=== PATIENT | female | born 1960 | race American Indian/Alaskan Native ===

== ENCOUNTER 2016-10-22 16:52 | Emergency (ER) | payer OTHER ==
[2016-10-22] MEDS ORDERED: ZOFRAN ODT PO ONE (17:25)
[2016-10-22 18:41] LABS: Basophils % (Auto) 0.5 % (0.0-1.8); Eosinophils % (Auto) 0.6 % (0.0-4.3); Hematocrit 38.2 % (30.3-42.9); Hemoglobin 12.8 gm/dl (10.1-14.3); Mean Corpuscular HGB Conc 34 % (30-34); Mean Corpuscular Hemoglobin 30 pg (28-32); Mean Corpuscular Volume 90 fl (79-97); Platelet Count 216 K/mm3 (140-440); Red Blood Count 4.24 M/mm3 (3.65-5.03); Red Cell Distribution Width 13.5 % (13.2-15.2); White Blood Count 9.9 K/mm3 (4.5-11.0)
[2016-10-22 18:59] LABS: Anion Gap 18 mmol/L; BUN/Creatinine Ratio 13.75; Blood Urea Nitrogen 11 mg/dL (7-17); Calcium 9.3 mg/dL (8.4-10.2); Carbon Dioxide 28 mmol/L (22-30); Chloride 99.7 mmol/L (98-107); Glucose 133 mg/dL (65-100); Potassium 3.7 mmol/L (3.6-5.0); Sodium 142 mmol/L (137-145)
[2016-10-23 05:12] VITALS: BP 147/73
--- NOTE | 2016-10-23 05:18 | Emergency Department Report ---
HPI - General Chief Complaint: Nausea/Vomiting/Diarrhea Time Seen by Provider: 10/23/16 05:06 - HPI HPI: This is a 56-year-old Afro-T[place] female who presents to the emergency department from home with complaint of left arm pain, nausea and vomiting. Patient started having the arm pain on Monday, 4 days ago. When the pain continued and/or worsened on Monday, 2 days ago, the patient went to [facility] for further evaluation. She says that she had a workup there that included x-rays and labs and was discharged home with the diagnoses of arthritis. However the patient was given some Percocet at the ER and it did not do well with her and she had episodes of nausea and vomiting. Patient continued to have episodes of nausea and vomiting even after discharge. She was discharged home with naproxen and tramadol. The patient says that the naproxen seems to work well for her but when she took the tramadol she once again had some episodes of nausea and vomiting. She presents here today with concern for the nausea and vomiting. She denies any chest pain, shortness of breath, back pain, fever. She has a past medical history of non-insulin dependent diabetes and hypertension. She did not take her blood pressure medications yet today. She has a primary care doctor but has not seen them regarding her symptoms. ED Past Medical Hx - Past Medical History Previous Medical History?: Yes Hx Hypertension: Yes Hx Diabetes: Yes - Social History Smoking Status: Never Smoker Substance Use Type: None - Medications Home Medications: Home Medications Medication Instructions Recorded Confirmed Last Taken Type Lisinopril/Hydrochlorothiazide 1 tab PO QDAY 11/17/15 11/17/15 Unknown History [Zestoretic 20-25 mg] Metformin HCl [Glucophage Xr] 500 mg PO DAILY 11/17/15 11/17/15 Unknown History Ondansetron [Zofran Odt] 4 mg PO Q6H #7 tab.rapdis 11/17/15 Unknown Rx Verapamil ER [Calan Sr] 180 mg PO DAILY 11/17/15 11/17/15 Unknown History Ondansetron [Zofran Odt] 4 mg PO Q8H PRN #10 tab.rapdis 10/23/16 Unknown Rx ED Review of Systems ROS: Stated complaint: VOMITTING Other details as noted in HPI Comment: All other systems reviewed and negative Constitutional: denies: chills, fever Eyes: denies: eye pain, eye discharge, vision change ENT: denies: ear pain, throat pain Respiratory: denies: cough, shortness of breath, wheezing Cardiovascular: denies: chest pain, palpitations Gastrointestinal: nausea, vomiting Genitourinary: denies: urgency, dysuria, discharge Musculoskeletal: denies: back pain, joint swelling, arthralgia Skin: denies: rash, lesions Neurological: denies: headache, weakness, paresthesias Physical Exam - Physical Exam Vital Signs: Vital Signs 10/22/16 10/22/16 10/23/16 17:05 22:29 03:21 Temperature 98.2 F 98.8 F 98.5 F Pulse Rate 70 68 63 Respiratory 18 18 18 Rate Blood Pressure 152/80 183/98 Blood Pressure 193/82 [Right] O2 Sat by Pulse 97 98 97 Oximetry Physical Exam: GENERAL: The patient is well-developed well-nourished. HEENT: Normocephalic. Atraumatic. Extraocular motions are intact. Patient has moist mucous membranes. Pupils equal reactive to light bilaterally. NECK: Supple. Trachea is midline. CHEST/LUNGS: Clear to auscultation. There is no respiratory distress noted. HEART/CARDIOVASCULAR: Regular. There is no tachycardia. There is no gallop rub or murmur. ABDOMEN: Abdomen is soft, nontender. Patient has normal bowel sounds. There is no abdominal distention. SKIN: Skin is warm and dry. NEURO: The patient is awake, alert, and oriented. The patient is cooperative. The patient has no focal neurologic deficits. The patient has normal speech and gait. MUSCULOSKELETAL: She has some reproducible tenderness palpation to the left shoulder and bicep but no obvious deformity. Patient has some decreased arm extension and abduction secondary to pain. Radial pulses +2 over 4 bilaterally. There is no evidence of acute injury. ED Course Vital Signs 10/22/16 10/22/16 10/23/16 17:05 22:29 03:21 Temperature 98.2 F 98.8 F 98.5 F Pulse Rate 70 68 63 Respiratory 18 18 18 Rate Blood Pressure 152/80 183/98 Blood Pressure 193/82 [Right] O2 Sat by Pulse 97 98 97 Oximetry ED Medical Decision Making - Lab Data Result diagrams: 10/22/16 18:12 10/22/16 18:12 - EKG Data -: EKG Interpreted by Me EKG shows normal: sinus rhythm, axis, intervals, QRS complexes (LVH), ST-T waves Rate: normal - EKG Data When compared to previous EKG there are: previous EKG unavailable Interpretation: LVH - Radiology Data Radiology results: image reviewed interpreted by me: She has left shoulder does not show any fracture, dislocation or any acute process. - Medical Decision Making 48-year-old female presents with some left arm pain as well as some recent nausea and vomiting. The nausea and vomiting appears most consistent with taking any opiate medication as the patient does not appear to react well with those particular types medication. Patient has been in the emergency department for him was 12 hours and there is been no further vomiting. She was given a dose of Zofran earlier. Patient had x-rays at [facility] that were allegedly read as normal without any fracture or dislocation. X-ray was done here of left shoulder that also did not show any fracture, dislocation or any acute process. Patient's labs are unremarkable including negative troponins 3 but the patient also does not have any chest or back pain or any other signs of coronary artery disease. EKG does not show any signs of ST elevation [place], ischemia or dysrhythmia. The patient appears safe for discharge home. She'll be given a referral for orthopedist. She'll be given some Zofran for nausea and encouraged to stay away from the opiates. - Differential Diagnosis rotator cuff injury, osteoarthritis,, dislocation Critical Care Time: No Critical care attestation.: If time is entered above; I have spent that time in minutes in the direct care of this critically ill patient, excluding procedure time. ED Disposition Clinical Impression: Left shoulder pain Qualifiers: Chronicity: acute Qualified Code(s): M25.512 - Pain in left shoulder Nausea & vomiting Qualifiers: Vomiting type: unspecified Vomiting Intractability: non-intractable Qualified Code(s): R11.2 - Nausea with vomiting, unspecified Disposition: DISCHARGED TO HOME OR SELFCARE Is pt being admited?: No Condition: Stable Instructions: Arthralgia (ED), Acute Nausea and Vomiting (ED) Additional Instructions: Please follow-up with your primary care doctor the next few days. I'll getting a referral for a local orthopedist, Dr. Vargas, follow-up regarding her shoulder and arm pain. Return to the emergency department with any worsening of your symptoms or any acute distress. Prescriptions: Ondansetron [Zofran Odt] 4 mg PO Q8H PRN #10 tab.rapdis PRN Reason: Nausea Referrals: PRIMARY CARE, [Primary Care Provider] - 3-5 Days NEY VARGAS MD [Staff Physician] - 3-5 Days Time of Disposition: 05:58
--- NOTE | 2016-10-23 09:48 | XRay Report ---
Left shoulder 3 views: History: Shoulder pain. Findings: Suspicion of mild arthritic changes a.c. joint and inferior glenohumeral joint. The acromiohumeral space appears unremarkable. No soft tissue calcification. No abnormality of the greater and lesser tuberosity. Impression: Mild arthritic changes a.c. joint and inferior glenohumeral joint.
== END 2016-10-23 06:22 | disposition home or self-care (01) ==
LOC: ED 16:52
DX: M25.512 Pain in left shoulder (principal); R11.2 Nausea with vomiting, unspecified; I10 Essential (primary) hypertension; E11.9 Type 2 diabetes mellitus without complications
CPT/HCPCS: 36415; 80048; 82962; 84484; 85025; 93005; 93010; Q0162

== ENCOUNTER 2018-02-15 15:58 | Observation (INO) | payer OTHER ==
[2018-02-15 17:26] LABS: Basophils % (Auto) 0.4 % (0.0-1.8); Eosinophils % (Auto) 0.3 % (0.0-4.3); Hematocrit 39.8 % (30.3-42.9); Hemoglobin 13.3 gm/dl (10.1-14.3); Lymphocytes # (Auto) 1.9 K/mm3 (1.2-5.4); Lymphocytes % (Auto) 18.6 % (13.4-35.0); Mean Corpuscular HGB Conc 33 % (30-34); Mean Corpuscular Hemoglobin 31 pg (28-32); Mean Corpuscular Volume 93 fl (79-97); Monocytes # (Auto) 0.6 K/mm3 (0.0-0.8); Monocytes % (Auto) 5.7 % (0.0-7.3); Platelet Count 269 K/mm3 (140-440); Red Blood Count 4.29 M/mm3 (3.65-5.03); Red Cell Distribution Width 13.6 % (13.2-15.2)
[2018-02-15 17:32] LABS: Alanine Aminotransferase 22 units/L (7-56); BUN/Creatinine Ratio 17; Blood Urea Nitrogen 10 mg/dL (7-17); Calcium 9.5 mg/dL (8.4-10.2); Hemolysis Index 3
[2018-02-15 18:26] LABS: Bilirubin,Urine NEG (Negative); Blood,Urine NEG (Negative); Color,Urine Yellow (Yellow); Mucus,Urine FEW /HPF; Protein,Urine <15 mg/dL mg/dL (Negative); Urobilinogen,Urine < 2.0 mg/dL (<2.0)
[2018-02-15] MEDS ORDERED: ZOFRAN IV ONE (20:24)
[2018-02-15] MEDS ORDERED: NACL 0.9% 500 ML 500 ML IV ONE (20:24)
--- NOTE | 2018-02-15 20:25 | Emergency Department Report ---
ED Neuro Deficit HPI - General Chief Complaint: Nausea/Vomiting/Diarrhea Stated Complaint: NAUSEA Time Seen by Provider: 02/15/18 20:12 Source: patient, RN notes reviewed Mode of arrival: Ambulatory Limitations: No Limitations - History of Present Illness Initial Comments: This is a 57-year-old female who is unknown to this provider previously. Primary care Dr.: Dr. Lynch Past medical history: Hypertension, diabetes Patient presents to the ER with a complaint of nausea and feeling off balance. Her symptoms started at 12:30 PM this afternoon. Symptoms are constant, they do not have exacerbating or relieving factors. She admits to left-sided temporal headache and left-sided neck discomfort. The headache is not sudden or thunderclap in nature. No recent chiropractic manipulation, no recent motor vehicle accidents or fender elam's. Also admits nonspecific right-sided visual disturbance within the past month, reports that she saw an outpatient "eye doctor" and was informed that she had cataracts in the right eye. Denies chest pain, abdominal pain, shortness of breath, extremity weakness, numbness, urinary retention or incontinence. -: Sudden Location: ataxia Presenting Symptoms: Absent: Weak/Paralyzed One Side, Sudden, Severe Headache, Blurred/Loss of Vision, Facial Droop/Numbness, Unable to Speak Clearly, Altered Mental Status History of same: No Place: work Severity: moderate Improves With: none Worsens With: none On Anticoagulants: No Context: sudden onset Associated Symptoms: headaches, loss of appetite, malise, nausea/vomiting, weakness. denies: confusion, chest pain, cough, diaphoresis, fever/chills, vertigo, seizures, shortness of breath, syncope - Related Data Home Medications: Home Medications Medication Instructions Recorded Confirmed Last Taken Lisinopril/Hydrochlorothiazide 1 tab PO QDAY 11/17/15 11/17/15 Unknown [Zestoretic 20-25 mg] Metformin HCl [Glucophage Xr] 500 mg PO DAILY 11/17/15 11/17/15 Unknown Verapamil ER [Calan Sr] 180 mg PO DAILY 11/17/15 11/17/15 Unknown Previous Rx's Medication Instructions Recorded Last Taken Type Ondansetron [Zofran Odt] 4 mg PO Q6H #7 tab.rapdis 11/17/15 Unknown Rx Ondansetron [Zofran Odt] 4 mg PO Q8H PRN #10 tab.rapdis 10/23/16 Unknown Rx Allergies/Adverse Reactions: Allergies Allergy/AdvReac Type Severity Reaction Status Date / Time codeine Allergy Vomiting Verified 10/22/16 17:04 ED Review of Systems ROS: Stated complaint: NAUSEA Other details as noted in HPI Comment: All other systems reviewed and negative ED Past Medical Hx - Past Medical History Hx Hypertension: Yes Hx Diabetes: Yes - Social History Smoking Status: Never Smoker Substance Use Type: Alcohol - Medications Home Medications: Home Medications Medication Instructions Recorded Confirmed Last Taken Type Lisinopril/Hydrochlorothiazide 1 tab PO QDAY 11/17/15 11/17/15 Unknown History [Zestoretic 20-25 mg] Metformin HCl [Glucophage Xr] 500 mg PO DAILY 11/17/15 11/17/15 Unknown History Ondansetron [Zofran Odt] 4 mg PO Q6H #7 tab.rapdis 11/17/15 Unknown Rx Verapamil ER [Calan Sr] 180 mg PO DAILY 11/17/15 11/17/15 Unknown History Ondansetron [Zofran Odt] 4 mg PO Q8H PRN #10 tab.rapdis 10/23/16 Unknown Rx ED Neuro Physical Exam - General Limitations: No Limitations General appearance: alert, anxious Suspected Stroke: Yes - Head Head exam: Present: atraumatic, normocephalic - Eye Eye exam: Present: normal appearance, PERRL, EOMI, other (visual acuity intact to finger counting, color perception, reading at a close distance). Absent: nystagmus - ENT ENT exam: Present: normal exam, normal orophraynx, mucous membranes moist, normal external ear exam - Neck Neck exam: Present: normal inspection, full ROM. Absent: tenderness, meningismus - Respiratory Respiratory exam: Present: normal lung sounds bilaterally. Absent: respiratory distress - Cardiovascular Cardiovascular Exam: Present: regular rate, normal rhythm, normal heart sounds. Absent: bradycardia, tachycardia, irregular rhythm, systolic murmur, diastolic murmur, rubs, gallop - GI/Abdominal GI/Abdominal exam: Present: soft, normal bowel sounds. Absent: distended, tenderness, guarding, rebound, rigid, pulsatile mass - Extremities Exam Extremities exam: Present: normal inspection, full ROM, normal capillary refill , other (2+ pulses noted in the bilateral upper, lower extremities. Compartments soft. No long bony tenderness. The pelvis is stable.). Absent: pedal edema, joint swelling, calf tenderness - Back Exam Back exam: Present: normal inspection, full ROM. Absent: tenderness, CVA tenderness (R), paraspinal tenderness, vertebral tenderness - Neurological Exam Neurological exam: Present: alert (is no pass pointing. There is negative pronator drift. There is normal lden-jq-arpl.), oriented X3, CN II-XII intact, abnormal gait (patient walks with a normal gait. Cannot perform tandem gait. Has difficulty with Romberg examination), other (Extraocular movements intact. Tongue midline. No facial droop. Facial sensation intact to light touch in the V1, V2, V3 distribution bilaterally. 5 and 5 strength in 4 extremities.. Sensation is intact to light touch in 4 extremities.). Absent: motor sensory deficit - NIHSS Assessment Interval: Baseline 1a. Level of Consciousness: alert 1b. LOC Questions: answers correctly 1c. LOC Commands: performs tasks correctly 2. Best Gaze: normal 3. Visual: no visual loss 4. Facial Palsy: normal symmetrical movement 5b. Motor Arm Right: no drift 5a. Motor Arm Left: no drift 6a. Motor Leg Left: no drift 6b. Motor Leg Right: no drift 7. Limb Ataxia: absent 8. Sensory: normal 9. Best Language: no aphasia 10. Dysarthria: normal 11. Extinction/Inattention: no abnormality Total Score: 0 Stroke Severity: No Stroke Symptoms - Psychiatric Psychiatric exam: Present: anxious - Skin Skin exam: Present: warm, dry, intact, normal color. Absent: rash ED Course Vital Signs 02/15/18 02/15/18 16:43 20:38 Temperature 98.3 F 98.1 F Pulse Rate 69 68 Respiratory 17 18 Rate Blood Pressure 156/70 Blood Pressure 190/100 [Left] O2 Sat by Pulse 98 99 Oximetry - Reevaluation(s) Reevaluation #1: 02/15/18 21:14 Differential diagnosis, including but not limited to: Stroke, vertigo, arrhythmia, structural cardiac disease, electrolyte derangement, acute coronary syndrome Assessment and plan: 57-year-old female with a complaint of nausea and unsteady gait. She has mild headache and neck pain. She is afebrile with hypertension. Possible subacute stroke. Not a TPA candidate as her NIH score is 0, although she is unable to perform tandem gait. CT scan of the brain, CT angiogram of the head and neck pending to assess for potential endovascular lesion. Elevated blood pressure is appreciated, we will allow for permissive hypertension given current clinical picture. Reevaluation #2: 02/15/18 22:[address] scan of the brain is negative for acute disease. Reevaluation #3: 02/15/18 22:23 Angiogram of the head is negative. Hospital physician, Dr. Martinez accepts the patient to the medical service. Reevaluation #4: 02/15/18 22:32 CTA neck is negative for significant findings. - Lab Data Result diagrams: 02/15/18 16:55 02/15/18 16:55 Lab Results 02/15/18 02/15/18 02/15/18 Range/Units 16:55 16:55 17:02 WBC 9.9 (4.5-11.0) K/mm3 RBC 4.29 (3.65-5.03) M/mm3 Hgb 13.3 (10.1-14.3) gm/dl Hct 39.8 (30.3-42.9) % MCV 93 (79-97) fl MCH 31 (28-32) pg MCHC 33 (30-34) % RDW 13.6 (13.2-15.2) % Plt Count 269 (140-440) K/mm3 Lymph % (Auto) 18.6 (13.4-35.0) % Bent % (Auto) 5.7 (0.0-7.3) % Eos % (Auto) 0.3 (0.0-4.3) % Baso % (Auto) 0.4 (0.0-1.8) % Lymph # 1.9 (1.2-5.4) K/mm3 Bent # 0.6 (0.0-0.8) K/mm3 Eos # 0.0 (0.0-0.4) K/mm3 Baso # 0.0 (0.0-0.1) K/mm3 Seg Neutrophils % 75.0 H (40.0-70.0) % Seg Neutrophils # 7.5 (1.8-7.7) K/mm3 PT (12.2-14.9) Sec. INR (0.87-1.13) APTT (24.2-36.6) Sec. Sodium 140 (137-145) mmol/L Potassium 3.3 L (3.6-5.0) mmol/L Chloride 96.3 L (98-107) mmol/L Carbon Dioxide 30 (22-30) mmol/L Anion Gap 17 mmol/L BUN 10 (7-17) mg/dL Creatinine 0.6 L (0.7-1.2) mg/dL Estimated GFR > 60 ml/min BUN/Creatinine Ratio 17 % Glucose 144 H (65-100) mg/dL Calcium 9.5 (8.4-10.2) mg/dL Magnesium (1.7-2.3) mg/dL Total Bilirubin 0.30 (0.1-1.2) mg/dL AST 20 (5-40) units/L ALT 22 (7-56) units/L Alkaline Phosphatase 111 (35-129) units/L Total Creatine Kinase (30-135) units/L Troponin T (0.00-0.029) ng/mL Total Protein 8.2 (6.3-8.2) g/dL Albumin 4.0 (3.9-5) g/dL Albumin/Globulin Ratio 1.0 % HCG, Qual Negative (Negative) Urine Color (Yellow) Urine Turbidity (Clear) Urine pH (5.0-7.0) Ur Specific Hurst (1.003-1.030) Urine Protein (Negative) mg/dL Urine Glucose (UA) (Negative) mg/dL Urine Ketones (Negative) mg/dL Urine Blood (Negative) Urine Nitrite (Negative) Urine Bilirubin (Negative) Urine Urobilinogen (<2.0) mg/dL Ur Leukocyte Esterase (Negative) Urine WBC (Auto) (0.0-6.0) /HPF Urine RBC (Auto) (0.0-6.0) /HPF U Epithel Cells (Auto) (0-13.0) /HPF Urine Mucus /HPF 02/15/18 02/15/18 02/15/18 Range/Units 17:59 20:29 20:29 WBC (4.5-11.0) K/mm3 RBC (3.65-5.03) M/mm3 Hgb (10.1-14.3) gm/dl Hct (30.3-42.9) % MCV (79-97) fl MCH (28-32) pg MCHC (30-34) % RDW (13.2-15.2) % Plt Count (140-440) K/mm3 Lymph % (Auto) (13.4-35.0) % Bent % (Auto) (0.0-7.3) % Eos % (Auto) (0.0-4.3) % Baso % (Auto) (0.0-1.8) % Lymph # (1.2-5.4) K/mm3 Bent # (0.0-0.8) K/mm3 Eos # (0.0-0.4) K/mm3 Baso # (0.0-0.1) K/mm3 Seg Neutrophils % (40.0-70.0) % Seg Neutrophils # (1.8-7.7) K/mm3 PT 12.5 (12.2-14.9) Sec. INR 0.89 (0.87-1.13) APTT 21.4 L (24.2-36.6) Sec. Sodium (137-145) mmol/L Potassium (3.6-5.0) mmol/L Chloride (98-107) mmol/L Carbon Dioxide (22-30) mmol/L Anion Gap mmol/L BUN (7-17) mg/dL Creatinine (0.7-1.2) mg/dL Estimated GFR ml/min BUN/Creatinine Ratio % Glucose (65-100) mg/dL Calcium (8.4-10.2) mg/dL Magnesium 2.00 (1.7-2.3) mg/dL Total Bilirubin (0.1-1.2) mg/dL AST (5-40) units/L ALT (7-56) units/L Alkaline Phosphatase (35-129) units/L Total Creatine Kinase 99 (30-135) units/L Troponin T (0.00-0.029) ng/mL Total Protein (6.3-8.2) g/dL Albumin (3.9-5) g/dL Albumin/Globulin Ratio % HCG, Qual (Negative) Urine Color Yellow (Yellow) Urine Turbidity Clear (Clear) Urine pH 7.0 (5.0-7.0) Ur Specific Hurst 1.015 (1.003-1.030) Urine Protein <15 mg/dl (Negative) mg/dL Urine Glucose (UA) 50 (Negative) mg/dL Urine Ketones Neg (Negative) mg/dL Urine Blood Neg (Negative) Urine Nitrite Neg (Negative) Urine Bilirubin Neg (Negative) Urine Urobilinogen < 2.0 (<2.0) mg/dL Ur Leukocyte Esterase Sm (Negative) Urine WBC (Auto) 5.0 (0.0-6.0) /HPF Urine RBC (Auto) 2.0 (0.0-6.0) /HPF U Epithel Cells (Auto) 2.0 (0-13.0) /HPF Urine Mucus Few /HPF 02/15/18 Range/Units 20:35 WBC (4.5-11.0) K/mm3 RBC (3.65-5.03) M/mm3 Hgb (10.1-14.3) gm/dl Hct (30.3-42.9) % MCV (79-97) fl MCH (28-32) pg MCHC (30-34) % RDW (13.2-15.2) % Plt Count (140-440) K/mm3 Lymph % (Auto) (13.4-35.0) % Bent % (Auto) (0.0-7.3) % Eos % (Auto) (0.0-4.3) % Baso % (Auto) (0.0-1.8) % Lymph # (1.2-5.4) K/mm3 Bent # (0.0-0.8) K/mm3 Eos # (0.0-0.4) K/mm3 Baso # (0.0-0.1) K/mm3 Seg Neutrophils % (40.0-70.0) % Seg Neutrophils # (1.8-7.7) K/mm3 PT (12.2-14.9) Sec. INR (0.87-1.13) APTT (24.2-36.6) Sec. Sodium (137-145) mmol/L Potassium (3.6-5.0) mmol/L Chloride (98-107) mmol/L Carbon Dioxide (22-30) mmol/L Anion Gap mmol/L BUN (7-17) mg/dL Creatinine (0.7-1.2) mg/dL Estimated GFR ml/min BUN/Creatinine Ratio % Glucose (65-100) mg/dL Calcium (8.4-10.2) mg/dL Magnesium (1.7-2.3) mg/dL Total Bilirubin (0.1-1.2) mg/dL AST (5-40) units/L ALT (7-56) units/L Alkaline Phosphatase (35-129) units/L Total Creatine Kinase (30-135) units/L Troponin T < 0.010 (0.00-0.029) ng/mL Total Protein (6.3-8.2) g/dL Albumin (3.9-5) g/dL Albumin/Globulin Ratio % HCG, Qual (Negative) Urine Color (Yellow) Urine Turbidity (Clear) Urine pH (5.0-7.0) Ur Specific Hurst (1.003-1.030) Urine Protein (Negative) mg/dL Urine Glucose (UA) (Negative) mg/dL Urine Ketones (Negative) mg/dL Urine Blood (Negative) Urine Nitrite (Negative) Urine Bilirubin (Negative) Urine Urobilinogen (<2.0) mg/dL Ur Leukocyte Esterase (Negative) Urine WBC (Auto) (0.0-6.0) /HPF Urine RBC (Auto) (0.0-6.0) /HPF U Epithel Cells (Auto) (0-13.0) /HPF Urine Mucus /HPF - EKG Data EKG shows normal: sinus rhythm When compared to previous EKG there are: previous EKG unavailable 02/15/18 21:15 Sinus bradycardia, 58 bpm, normal axis, high left ventricular voltage, QTC prolonged, abnormal EKG, not a STEMI - Radiology Data Radiology results: report reviewed - Core Measures Measure Exclusions: not indicated - Thrombolytic Inclusion/Exclusion Thrombolytic Exclusion Criteria: Symptom Onset > 3 Hours Critical care attestation.: If time is entered above; I have spent that time in minutes in the direct care of this critically ill patient, excluding procedure time. ED Disposition Clinical Impression: Unsteady gait Disposition: OP ADMIT IP TO THIS HOSP Is pt being admited?: Yes Does the pt Need Aspirin: Yes Condition: Good Referrals: PRIMARY CARE, [Primary Care Provider] - 3-5 Days
[2018-02-15 20:54] LABS: INR 0.89 (0.87-1.13)
[2018-02-15 20:55] LABS: Partial Thromboplastin Time 21.4 Sec. (24.2-36.6)
--- NOTE | 2018-02-15 21:53 | Cat Scan Report ---
FINAL REPORT PROCEDURE: CT HEAD/BRAIN WO CON TECHNIQUE: Computerized tomography of the head was performed without contrast material. HISTORY: Stroke symptoms COMPARISON: No prior studies are available for comparison. FINDINGS: Brain: There is no evidence of intracranial hemorrhage. No parenchymal hemorrhage is seen. No mass lesions or mass effect is identified. No abnormal extra-axial fluid collections or masses are seen. Nonspecific mineralization the basal ganglia are visualized. There is minimal decreased density seen in the periventricular white matter without mass effect. This is fairly symmetric and does not exhibit any mass effect consistent with gliosis probably on the basis of microvascular disease or white matter changes of aging. Ventricles: Ventricles are normal size and are midline. Bones: No evidence of acute fracture. Paranasal sinuses: Visualized portions appear clear. Mastoid air cells: Visualized portions appear clear. IMPRESSION: Minimal gliosis suspected. No other abnormalities are seen. If symptoms persist or worsen consider follow-up CT scan or MRI of the brain for further evaluation
--- NOTE | 2018-02-15 22:16 | Cat Scan Report ---
FINAL REPORT PROCEDURE: CT ANGIO HEAD TECHNIQUE: Computerized tomographic angiography of the head was performed during the IV injection of iodinated nonionic contrast including image processing. The image data was postprocessed using 2-dimensional multiplanar reformatted (MPR) and 3-dimensional (MIP and/or volume rendered) techniques. HISTORY: stroke sx COMPARISON: No prior studies are available for comparison. FINDINGS: The visualized portions of the internal carotid arteries appear widely patent. Carotid siphons, the A1 segments and anterior cerebral arteries as well as the middle cerebral arteries also appear widely patent. The vertebral arteries and basilar artery are widely patent. Right and left posterior cerebral arteries are widely patent. There is persistent circulation of the right posterior cerebral artery, normal variant. There is no vascular occlusion, significant stenosis, aneurysm or vascular malformation identified. IMPRESSION: The anterior posterior circulation are intact. No focal stenosis or occlusion identified.
[2018-02-15] MEDS ORDERED: BABY ASPIRIN PO ONE (22:27)
--- NOTE | 2018-02-15 22:27 | Cat Scan Report ---
FINAL REPORT PROCEDURE: CT ANGIO NECK TECHNIQUE: Computerized tomographic angiography of the neck was performed after the IV injection of iodinated nonionic contrast including image processing. The image data was postprocessed using 2-dimensional multiplanar reformatted (MPR) and 3-dimensional (MIP and/or volume rendered) techniques. HISTORY: stroke symptoms COMPARISON: No prior studies are available for comparison. Note: Assessment of carotid artery stenosis is based on measurement of the distal internal carotid artery diameter as the denominator for stenosis calculations and the [place] Symptomatic Carotid Endarterectomy Trial (NASCET) stenosis criteria . CPT 3100F FINDINGS: Visualized portions of the aortic arch is unremarkable. Vertebral arteries are widely patent. Common carotid arteries bilaterally are widely patent. The carotid bulbs are also widely patent. There is tortuosity of the right and left internal carotid arteries without stenosis or occlusion. IMPRESSION: Negative exam. Vertebral arteries and carotid arteries are widely patent.
[2018-02-15] MEDS ORDERED: NACL 0.9% 1000 ML 1,000 ML IV SCH (23:45)
--- NOTE | 2018-02-15 23:47 | History and Physical Report ---
History of Present Illness Date of examination: 02/15/18 Date of admission: 02/15/2018 Chief complaint: Chief complaint: Nausea and unsteady gait since 12:30 PM History of present illness: History of Present Illness: 57-year-old female with history of hypertension and type 2 diabetes comes in for nausea and feeling unsteady since 12:30 this afternoon. Symptoms are constant. Patient also admits to left-sided headache and left-sided neck discomfort. No recent motor vehicle accidents. Patient feels unsteady while walking. No nasal regurgitation of fluids. No diplopia. No exacerbating or relieving factors. Past Medical History Hx Hypertension: Yes Hx Diabetes: Yes Social History Smoking Status: Never Smoker Substance Use Type: Alcohol Family history Htn Surgery history - Medications Home Medications: Home Medications Medication Instructions Recorded Confirmed Last Taken Type Lisinopril/Hydrochlorothiazide 1 tab PO QDAY 11/17/15 11/17/15 Unknown History [Zestoretic 20-25 mg] Metformin HCl [Glucophage Xr] 500 mg PO DAILY 11/17/15 11/17/15 Unknown History Ondansetron [Zofran Odt] 4 mg PO Q6H #7 tab.rapdis 11/17/15 Unknown Rx Verapamil ER [Calan Sr] 180 mg PO DAILY 11/17/15 11/17/15 Unknown History Ondansetron [Zofran Odt] 4 mg PO Q8H PRN #10 tab.rapdis 10/23/16 Unknown Rx Review of systems ROS: Stated complaint: NAUSEA Other details as noted in HPI Comment: All other systems reviewed and negative Medications and Allergies Allergies Allergy/AdvReac Type Severity Reaction Status Date / Time codeine Allergy Vomiting Verified 10/22/16 17:04 Home Medications Medication Instructions Recorded Confirmed Last Taken Type Verapamil ER [Calan Sr] 180 mg PO DAILY 11/17/15 02/15/18 Unknown History Losartan/Hydrochlorothiazide 1 each PO DAILY 02/15/18 02/15/18 Unknown History [Losartan-Hctz 100-25 mg Tab] Exam - Physical Exam Narrative exam: Lying in bed in mild distress secondary to headache and nausea - Constitutional Vitals: Temp Pulse Resp BP Pulse Ox 98.1 F 54 L 13 149/81 100 02/15/18 20:38 02/15/18 22:46 02/15/18 22:46 02/15/18 22:46 02/15/18 22:46 General appearance: Present: mild distress, well-nourished - EENT Eyes: Present: PERRL ENT: hearing intact, clear oral mucosa - Neck Neck: Present: supple, normal ROM - Respiratory Respiratory effort: normal Respiratory: bilateral: CTA - Cardiovascular Heart Sounds: Present: S1 & S2. Absent: rub, click - Extremities Extremities: no ischemia, pulses intact, pulses symmetrical, No edema Peripheral Pulses: within normal limits - Abdominal General gastrointestinal: Present: soft, non-tender, non-distended, normal bowel sounds Female genitourinary: Present: normal - Rectal Rectal Exam: deferred - Integumentary Integumentary: Present: clear, warm, dry - Musculoskeletal Musculoskeletal: gait normal, strength equal bilaterally - Psychiatric Psychiatric: appropriate mood/affect, intact judgment & insight - Neurologic Neurologic: CNII-XII intact, moves all extremities (power is 5/5 all 4 extremities), other (unsteady gait) - Allied Health Allied health notes reviewed: nursing, case management Results - Labs CBC & Chem 7: 02/15/18 16:55 02/15/18 16:55 Labs: Laboratory Last Values WBC 9.9 K/mm3 (4.5-11.0) 02/15/18 16:55 RBC 4.29 M/mm3 (3.65-5.03) 02/15/18 16:55 Hgb 13.3 gm/dl (10.1-14.3) 02/15/18 16:55 Hct 39.8 % (30.3-42.9) 02/15/18 16:55 MCV 93 fl (79-97) 02/15/18 16:55 MCH 31 pg (28-32) 02/15/18 16:55 MCHC 33 % (30-34) 02/15/18 16:55 RDW 13.6 % (13.2-15.2) 02/15/18 16:55 Plt Count 269 K/mm3 (140-440) 02/15/18 16:55 Lymph % (Auto) 18.6 % (13.4-35.0) 02/15/18 16:55 [place] % (Auto) 5.7 % (0.0-7.3) 02/15/18 16:55 Eos % (Auto) 0.3 % (0.0-4.3) 02/15/18 16:55 Baso % (Auto) 0.4 % (0.0-1.8) 02/15/18 16:55 Lymph # 1.9 K/mm3 (1.2-5.4) 02/15/18 16:55 [place] # 0.6 K/mm3 (0.0-0.8) 02/15/18 16:55 Eos # 0.0 K/mm3 (0.0-0.4) 02/15/18 16:55 Baso # 0.0 K/mm3 (0.0-0.1) 02/15/18 16:55 Seg Neutrophils % 75.0 % (40.0-70.0) H 02/15/18 16:55 Seg Neutrophils # 7.5 K/mm3 (1.8-7.7) 02/15/18 16:55 PT 12.5 Sec. (12.2-14.9) 02/15/18 20:29 INR 0.89 (0.87-1.13) 02/15/18 20:29 APTT 21.4 Sec. (24.2-36.6) L 02/15/18 20:29 Sodium 140 mmol/L (137-145) 02/15/18 16:55 Potassium 3.3 mmol/L (3.6-5.0) L 02/15/18 16:55 Chloride 96.3 mmol/L (98-107) L 02/15/18 16:55 Carbon Dioxide 30 mmol/L (22-30) 02/15/18 16:55 Anion Gap 17 mmol/L 02/15/18 16:55 BUN 10 mg/dL (7-17) 02/15/18 16:55 Creatinine 0.6 mg/dL (0.7-1.2) L 02/15/18 16:55 Estimated GFR > 60 ml/min 02/15/18 16:55 BUN/Creatinine Ratio 17 % 02/15/18 16:55 Glucose 144 mg/dL (65-100) H 02/15/18 16:55 Calcium 9.5 mg/dL (8.4-10.2) 02/15/18 16:55 Magnesium 2.00 mg/dL (1.7-2.3) 02/15/18 20:29 Total Bilirubin 0.30 mg/dL (0.1-1.2) 02/15/18 16:55 AST 20 units/L (5-40) 02/15/18 16:55 ALT 22 units/L (7-56) 02/15/18 16:55 Alkaline Phosphatase 111 units/L (35-129) 02/15/18 16:55 Total Creatine Kinase 99 units/L (30-135) 02/15/18 20:29 Troponin T < 0.010 ng/mL (0.00-0.029) 02/15/18 20:35 Total Protein 8.2 g/dL (6.3-8.2) 02/15/18 16:55 Albumin 4.0 g/dL (3.9-5) 02/15/18 16:55 Albumin/Globulin Ratio 1.0 % 02/15/18 16:55 HCG, Qual Negative (Negative) 02/15/18 17:02 Urine Color Yellow (Yellow) 02/15/18 17:59 Urine Turbidity Clear (Clear) 02/15/18 17:59 Urine pH 7.0 (5.0-7.0) 02/15/18 17:59 Ur Specific [place] 1.015 (1.003-1.030) 02/15/18 17:59 Urine Protein <15 mg/dl mg/dL (Negative) 02/15/18 17:59 Urine Glucose (UA) 50 mg/dL (Negative) 02/15/18 17:59 Urine Ketones Neg mg/dL (Negative) 02/15/18 17:59 Urine Blood Neg (Negative) 02/15/18 17:59 Urine Nitrite Neg (Negative) 02/15/18 17:59 Urine Bilirubin Neg (Negative) 02/15/18 17:59 Urine Urobilinogen < 2.0 mg/dL (<2.0) 02/15/18 17:59 Ur Leukocyte Esterase Sm (Negative) 02/15/18 17:59 Urine WBC (Auto) 5.0 /HPF (0.0-6.0) 02/15/18 17:59 Urine RBC (Auto) 2.0 /HPF (0.0-6.0) 02/15/18 17:59 U Epithel Cells (Auto) 2.0 /HPF (0-13.0) 02/15/18 17:59 Urine Mucus Few /HPF 02/15/18 17:59 - Imaging and Cardiology EKG: report reviewed (heart rate of 58/m LVH by voltage criteria) Imaging and Cardiology: Neck CTA FINDINGS: Visualized portions of the aortic arch is unremarkable. Vertebral arteries are widely patent. Common carotid arteries bilaterally are widely patent. The carotid bulbs are also widely patent. There is tortuosity of the right and left internal carotid arteries without stenosis or occlusion. IMPRESSION: Negative exam. Vertebral arteries and carotid arteries are widely patent. Head CTA FINDINGS: The visualized portions of the internal carotid arteries appear widely patent. Carotid siphons, the A1 segments and anterior cerebral arteries as well as the middle cerebral arteries also appear widely patent. The vertebral arteries and basilar artery are widely patent. Right and left posterior cerebral arteries are widely patent. There is persistent circulation of the right posterior cerebral artery, normal variant. There is no vascular occlusion, significant stenosis, aneurysm or vascular malformation identified. IMPRESSION: The anterior posterior circulation are intact. No focal stenosis or occlusion identified. Head CT IMPRESSION: Minimal gliosis suspected. No other abnormalities are seen. If symptoms persist or worsen consider follow-up CT scan or MRI of the brain for further evaluation Assessment and Plan Advance Directives: Yes (full code) VTE prophylaxis?: Chemical Plan of care discussed with patient/family: Yes - Patient Problems (1) TIA (transient ischemic attack) Current Visit: Yes Status: Acute Plan to address problem: TIA versus acute CVA More in favor of TIA versus complex migraine MRI carotid duplex scan and echocardiogram ordered MRA did not ordered because her neck CTA and head CTA were negative (2) Hypertension Current Visit: Yes Status: Chronic Qualifiers: Hypertension type: essential hypertension Qualified Code(s): I10 - Essential (primary) hypertension Plan to address problem: Continue antihypertensive (3) T2DM (type 2 diabetes mellitus) Current Visit: Yes Status: Chronic Qualifiers: Diabetes mellitus terminal supervisor insulin use: without terminal supervisor use Plan to address problem: Continue metformin and coverage .Check hemoglobin A1c (4) Hypokalemia Current Visit: Yes Status: Acute Plan to address problem: Supplemented (5) DVT prophylaxis Current Visit: Yes Status: Acute Plan to address problem: Lovenox 40 mg subcutaneous daily
[2018-02-15] MEDS ORDERED: MORPHINE IV PRN (23:48)
[2018-02-15] MEDS ORDERED: ZOFRAN IV PRN (23:48)
[2018-02-15] MEDS ORDERED: SODIUM CHLORIDE FLUSH SYRINGE 10 ML IV PRN ×2 (23:48→23:52)
[2018-02-15] MEDS ORDERED: PERCOCET 5/325 PO PRN (23:48)
[2018-02-15] MEDS ORDERED: TYLENOL PO PRN (23:48)
[2018-02-16] MEDS ORDERED: HumaLOG SUB-Q ONE (01:30)
[2018-02-16] MEDS: KCL 10MEQ/100ML 10 MEQ/100 ML BAG IV SCH ×4 (03:08→17:19)
[2018-02-16 06:07] VITALS: BP 127/63
[2018-02-16 06:32] LABS: Basophils % (Auto) 0.4 % (0.0-1.8); Eosinophils # (Auto) 0.2 K/mm3 (0.0-0.4); Eosinophils % (Auto) 1.6 % (0.0-4.3); Hematocrit 38.5 % (30.3-42.9); Hemoglobin 12.9 gm/dl (10.1-14.3); Lymphocytes # (Auto) 3.5 K/mm3 (1.2-5.4); Lymphocytes % (Auto) 36.4 % (13.4-35.0); Mean Corpuscular HGB Conc 33 % (30-34); Mean Corpuscular Hemoglobin 31 pg (28-32); Mean Corpuscular Volume 94 fl (79-97); Monocytes # (Auto) 0.7 K/mm3 (0.0-0.8); Monocytes % (Auto) 7.3 % (0.0-7.3); Platelet Count 259 K/mm3 (140-440); Red Blood Count 4.11 M/mm3 (3.65-5.03); Red Cell Distribution Width 13.9 % (13.2-15.2)
[2018-02-16 07:29] LABS: Alanine Aminotransferase 19 units/L (7-56); Albumin 3.5 g/dL (3.9-5); BUN/Creatinine Ratio 11; Blood Urea Nitrogen 9 mg/dL (7-17); Calcium 8.8 mg/dL (8.4-10.2); Chol/HDL Ratio 2.58 %; HDL Cholesterol 55 mg/dL (40-59); Hemolysis Index 20; LDL Cholesterol,Direct 90 mg/dL (50-130)
--- NOTE | 2018-02-16 08:11 | Progress Note ---
Assessment and Plan Assessment and plan: 57-year-old female with history of hypertension and type 2 diabetes comes in for nausea and feeling unsteady since 12:30 this afternoon. Symptoms are constant. Patient also admits to left-sided headache and left-sided neck discomfort. No recent motor vehicle accidents. Patient feels unsteady while walking. Suspected TIA versus CVA - CT head negative for acute intracranial findings, CTA neck and head negative for acute findings - MRI, echo, cardiac Doppler pending - PT eval - Patient is on Lipitor and aspirin - Neurology consult Diabetes mellitus - ADA diet, Accu-Chek Disposition - Continue inpatient care History Interval history: Patient didn't have any dizziness or focal weakness. Hospitalist Physical - Physical exam Narrative exam: Not in cardiopulmonary distress. The patient appeared well nourished and normally developed. Vital signs as documented. Head exam is unremarkable. No scleral icterus . Neck is without jugular venous distension, thyromegaly, or carotid bruits. Lungs are clear to auscultation. Cardiac exam reveals regular rate and Rhythm. First and second heart sounds normal. No murmurs, rubs or gallops. Abdominal exam reveals normal bowel sounds, no masses, no organomegaly and no aortic enlargement. Extremities are nonedematous and both femoral and pedal pulses are normal. CAMPUS SAFETY OFFICER: Alert and oriented 3. No focal weakness. - Constitutional Vitals: Temp Pulse Resp BP Pulse Ox 98.0 F 52 L 20 127/63 97 02/16/18 05:20 02/16/18 05:20 02/16/18 05:20 02/16/18 05:20 02/16/18 05:20 General appearance: Present: mild distress, well-nourished Results - Labs CBC & Chem 7: 02/16/18 06:12 02/16/18 06:12 Labs: Laboratory Last Values WBC 9.6 K/mm3 (4.5-11.0) 02/16/18 06:12 RBC 4.11 M/mm3 (3.65-5.03) 02/16/18 06:12 Hgb 12.9 gm/dl (10.1-14.3) 02/16/18 06:12 Hct 38.5 % (30.3-42.9) 02/16/18 06:12 MCV 94 fl (79-97) 02/16/18 06:12 MCH 31 pg (28-32) 02/16/18 06:12 MCHC 33 % (30-34) 02/16/18 06:12 RDW 13.9 % (13.2-15.2) 02/16/18 06:12 Plt Count 259 K/mm3 (140-440) 02/16/18 06:12 Lymph % (Auto) 36.4 % (13.4-35.0) H 02/16/18 06:12 [place] % (Auto) 7.3 % (0.0-7.3) 02/16/18 06:12 Eos % (Auto) 1.6 % (0.0-4.3) 02/16/18 06:12 Baso % (Auto) 0.4 % (0.0-1.8) 02/16/18 06:12 Lymph # 3.5 K/mm3 (1.2-5.4) 02/16/18 06:12 [place] # 0.7 K/mm3 (0.0-0.8) 02/16/18 06:12 Eos # 0.2 K/mm3 (0.0-0.4) 02/16/18 06:12 Baso # 0.0 K/mm3 (0.0-0.1) 02/16/18 06:12 Seg Neutrophils % 54.3 % (40.0-70.0) 02/16/18 06:12 Seg Neutrophils # 5.2 K/mm3 (1.8-7.7) 02/16/18 06:12 PT 12.5 Sec. (12.2-14.9) 02/15/18 20:29 INR 0.89 (0.87-1.13) 02/15/18 20:29 APTT 21.4 Sec. (24.2-36.6) L 02/15/18 20:29 Sodium 144 mmol/L (137-145) 02/16/18 06:12 Potassium 3.5 mmol/L (3.6-5.0) L 02/16/18 06:12 Chloride 102.2 mmol/L (98-107) 02/16/18 06:12 Carbon Dioxide 26 mmol/L (22-30) 02/16/18 06:12 Anion Gap 19 mmol/L 02/16/18 06:12 BUN 9 mg/dL (7-17) 02/16/18 06:12 Creatinine 0.8 mg/dL (0.7-1.2) 02/16/18 06:12 Estimated GFR > 60 ml/min 02/16/18 06:12 BUN/Creatinine Ratio 11 % 02/16/18 06:12 Glucose 113 mg/dL (65-100) H 02/16/18 06:12 POC Glucose 152 (70-105) H 02/16/18 03:10 Hemoglobin A1c 7.5 % (4-6) H 02/15/18 23:59 Calcium 8.8 mg/dL (8.4-10.2) 02/16/18 06:12 Magnesium 2.00 mg/dL (1.7-2.3) 02/15/18 20:29 Total Bilirubin 0.30 mg/dL (0.1-1.2) 02/16/18 06:12 AST 17 units/L (5-40) 02/16/18 06:12 ALT 19 units/L (7-56) 02/16/18 06:12 Alkaline Phosphatase 100 units/L (35-129) 02/16/18 06:12 Total Creatine Kinase 99 units/L (30-135) 02/15/18 20:29 Troponin T < 0.010 ng/mL (0.00-0.029) 02/15/18 20:35 Total Protein 6.8 g/dL (6.3-8.2) 02/16/18 06:12 Albumin 3.5 g/dL (3.9-5) L 02/16/18 06:12 Albumin/Globulin Ratio 1.1 % 02/16/18 06:12 Triglycerides 94 mg/dL (2-149) 02/16/18 06:12 Cholesterol 142 mg/dL (50-199) 02/16/18 06:12 LDL Cholesterol Direct 90 mg/dL (50-130) 02/16/18 06:12 HDL Cholesterol 55 mg/dL (40-59) 02/16/18 06:12 Cholesterol/HDL Ratio 2.58 % 02/16/18 06:12 HCG, Qual Negative (Negative) 02/15/18 17:02 Urine Color Yellow (Yellow) 02/15/18 17:59 Urine Turbidity Clear (Clear) 02/15/18 17:59 Urine pH 7.0 (5.0-7.0) 02/15/18 17:59 Ur Specific [place] 1.015 (1.003-1.030) 02/15/18 17:59 Urine Protein <15 mg/dl mg/dL (Negative) 02/15/18 17:59 Urine Glucose (UA) 50 mg/dL (Negative) 02/15/18 17:59 Urine Ketones Neg mg/dL (Negative) 02/15/18 17:59 Urine Blood Neg (Negative) 02/15/18 17:59 Urine Nitrite Neg (Negative) 02/15/18 17:59 Urine Bilirubin Neg (Negative) 02/15/18 17:59 Urine Urobilinogen < 2.0 mg/dL (<2.0) 02/15/18 17:59 Ur Leukocyte Esterase Sm (Negative) 02/15/18 17:59 Urine WBC (Auto) 5.0 /HPF (0.0-6.0) 02/15/18 17:59 Urine RBC (Auto) 2.0 /HPF (0.0-6.0) 02/15/18 17:59 U Epithel Cells (Auto) 2.0 /HPF (0-13.0) 02/15/18 17:59 Urine Mucus Few /HPF 02/15/18 17:59 - Imaging and Cardiology CT Scan - head: report reviewed (negative)
[2018-02-16] MEDS ORDERED: ASPIRIN PO SCH (10:00)
[2018-02-16] MEDS ORDERED: SODIUM CHLORIDE FLUSH SYRINGE 10 ML IV SCH (10:00)
[2018-02-16] MEDS ORDERED: PEPCID PO SCH (10:00)
--- NOTE | 2018-02-16 15:26 | Magnetic Resonance Report ---
MRA of brain: History: Stroke. Findings: The vessels and [place] are widely patent. No evidence of stenosis occlusion, aneurysm or dissection. Codominant vertebral arteries with normal basilar artery and posterior cerebral arteries. Impression: Essentially negative MRA of brain.
--- NOTE | 2018-02-16 16:18 | Discharge Summary ---
Providers - Providers Date of Admission: 02/15/18 22:32 Date of discharge: 02/16/18 Attending physician: DELANEY RIOS MD 02/15/18 23:48 Consult to Physician [CONS] Routine Comment: Consulting Provider: JR BURNHAM Physician Instructions: Reason For Exam: CVA 02/15/18 23:52 Occupational Therapy Evaluate and Treat [CONS] Routine Comment: Reason For Exam: Neuro deficits Physical Therapy Evaluation and Treat [CONS] Routine Comment: Reason For Exam: Neuro deficits Primary care physician: TOWER DRAGLINE OPERATOR Hospitalization Reason for admission: Dizziness Condition: Good Pertinent studies: CT head normal Carotid Doppler normal ECHO normal Hospital course: 57-year-old female with history of hypertension and type 2 diabetes comes in for nausea and feeling unsteady since 12:30 this afternoon. Symptoms are constant. Patient denied any focal weakness or numbness. Patient feels unsteady while walking. Suspected TIA versus CVA - CT head negative for acute intracranial findings, CTA neck and head negative for acute findings - MRI; patient refused - Patient sign symptoms doesn't look like CVA ot TIA - Patient discharged on Lipitor and aspirin Diabetes mellitus - ADA diet, Accu-Chek - patient said she has metformin at home. Patient's dizziness subsided. patient was hemodynamically stable at the time of discharge. Disposition: [place]-01 TO HOME OR SELFCARE Time spent for discharge: 32 minutes - Discharge Diagnoses (1) T2DM (type 2 diabetes mellitus) Status: Acute Qualifiers: Diabetes mellitus chcf insulin use: without older adult social work specialist use Diabetes mellitus complication status: without complication Qualified Code(s): E11.9 - Type 2 diabetes mellitus without complications (2) Unsteady gait Status: Acute (3) Hypertension Status: Chronic Qualifiers: Hypertension type: essential hypertension Qualified Code(s): I10 - Essential (primary) hypertension Core Measure Documentation - Palliative Care Palliative Care/ Comfort Measures: Not Applicable - Core Measures Any of the following diagnoses?: none Exam - Physical Exam Narrative exam: Not in cardiopulmonary distress. The patient appeared well nourished and normally developed. Vital signs as documented. Head exam is unremarkable. No scleral icterus . Neck is without jugular venous distension, thyromegaly, or carotid bruits. Lungs are clear to auscultation. Cardiac exam reveals regular rate and Rhythm. First and second heart sounds normal. No murmurs, rubs or gallops. Abdominal exam reveals normal bowel sounds, no masses, no organomegaly and no aortic enlargement. Extremities are nonedematous and both femoral and pedal pulses are normal. RISK MGR: Alert and oriented 3. No focal weakness. - Constitutional Vitals: Temp Pulse Resp BP Pulse Ox 98.0 F 52 L 20 127/63 97 02/16/18 05:20 02/16/18 05:20 02/16/18 05:20 02/16/18 05:20 02/16/18 08:46 Plan Activity: no restrictions Weight Bearing Status: Full Weight Bearing Diet: low cholesterol, low salt, diabetic Additional Instructions: Follow at [facility] in 1-2 weeks Follow up with: PRIMARY CARE, [Primary Care Provider] - 3-5 Days Prescriptions: AtorvaSTATin [Lipitor] 40 mg PO QHS #30 tablet Aspirin [Aspirin TAB] 325 mg PO QDAY #325 tablet
[2018-02-17] MEDS ORDERED: LOSARTAN PO SCH (10:00)
[2018-02-17] MEDS ORDERED: CALAN SR PO SCH (10:00)
[2018-02-17] MEDS ORDERED: HYDROCHLOROTHIAZIDE PO SCH (10:00)
[2018-02-17] MEDS ORDERED: COZAAR PO SCH (10:00)
[2018-02-17] MEDS ORDERED: HCTZ PO SCH (10:00)
--- NOTE | 2018-02-26 15:41 | Vascular Lab Report ---
CAROTID DUPLEX STUDY: RIGHT PSVEDV CCA PROX:[id number] CCA DIST:8023 ICA PROX:6725 ICA MID:5320 ICA DIST:6120 ECA: 60 VERT: 52 20 LEFT PSVEDV CCA PROX:9526 CCA DIST:8021 ICA PROX:6222 ICA MID:8432 ICA DIST:9335 ECA: 56 VERT: 57 19 REASON FOR EXAM: Stroke. COMMENTS ON THE RIGHT: Doppler frequency analysis is consistent with 16 to 49 percent diameter reduction of the internal carotid artery. Minimal amount of plaque is seen. The common carotid artery is patent. The external carotid artery is patent. The vertebral artery has antegrade flow. COMMENTS ON THE LEFT: Doppler frequency analysis is consistent with 16 to 49 percent diameter reduction of the internal carotid artery. Minimal amount of plaque is seen. The common carotid artery is patent. The external carotid artery is patent. The vertebral artery has antegrade flow. IMPRESSION: Less than 50% diameter reduction in the internal carotid arteries bilaterally.
== END 2018-02-16 18:57 | disposition home or self-care (01) ==
LOC: ED 15:58 → INTOOBSV 22:32 → 3A 22:32
PROVIDERS: ADMIT Internal Medicine; ATTEND Internal Medicine
DX: R26.81 Unsteadiness on feet (principal); E87.6 Hypokalemia; I10 Essential (primary) hypertension; E11.9 Type 2 diabetes mellitus without complications; R79.1 Abnormal coagulation profile; Z72.89 Other problems related to lifestyle
CPT/HCPCS: 36415; 70450; 70496; 70498; 70544; 80053; 80061; 81001; 82550; 82962; 83036; 83735; 84484; 84703; 85025; 85610; 85730; 93005; 93010; 93306; 93880; 96361; 96365; 96366; 96372; 96374; 99285; G0378; J2405; J3480; J7030; J7040; Q9967; J1815

== ENCOUNTER 2018-04-14 19:44 | Emergency (ER) | payer OTHER ==
[2018-04-14 20:27] VITALS: BP 170/87
[2018-04-14 21:10] LABS: Basophils # (Auto) 0.1 K/mm3 (0.0-0.1); Basophils % (Auto) 0.6 % (0.0-1.8); Eosinophils # (Auto) 0.1 K/mm3 (0.0-0.4); Eosinophils % (Auto) 1.3 % (0.0-4.3); Hemoglobin 12.8 gm/dl (10.1-14.3); Lymphocytes # (Auto) 2.4 K/mm3 (1.2-5.4); Lymphocytes % (Auto) 26.4 % (13.4-35.0); Mean Corpuscular HGB Conc 35 % (30-34); Mean Corpuscular Hemoglobin 32 pg (28-32); Mean Corpuscular Volume 93 fl (79-97); Monocytes # (Auto) 0.6 K/mm3 (0.0-0.8); Monocytes % (Auto) 6.3 % (0.0-7.3); Platelet Count 252 K/mm3 (140-440); Red Cell Distribution Width 13.6 % (13.2-15.2)
[2018-04-14 21:36] LABS: Alanine Aminotransferase 20 units/L (7-56); Albumin 3.6 g/dL (3.9-5); BUN/Creatinine Ratio 10; Blood Urea Nitrogen 8 mg/dL (7-17); Calcium 8.8 mg/dL (8.4-10.2); Hemolysis Index 8
== END 2018-04-15 01:02 | disposition left against medical advice (07) ==
LOC: ED 19:44
DX: R06.00 Dyspnea, unspecified (principal); Z53.21 Procedure and treatment not carried out due to patient leaving prior to being seen by health care provider
CPT/HCPCS: 36415; 80053; 82962; 85025; 93005; 93010

== ENCOUNTER 2020-03-11 18:46 | Emergency (ER) | payer SELFPAY ==
--- NOTE | 2020-03-11 20:20 | Event Note ---
ED Screening Note Date of service: 03/11/20 Time: 20:19 ED Screening Note: 59-year-old female presents with feelings of lightheadedness, nausea, and feeling sick. Patient states she is unsure if it is something that she ate because feeling started while she was at work Past medical history, diabetes and hypertension controlled with medication This initial assessment/diagnostic orders/clinical plan/treatment(s) is/are subject to change based on patients health status, clinical progression and re- assessment by fellow clinical providers in the ED. Further treatment and workup at subsequent clinical providers discretion. Patient/guardian urged not to elope from the ED as their condition may be serious if not clinically assessed and managed. Initial orders include: labs,ua, ekg
[2020-03-11] MEDS ORDERED: ONDANSETRON 4 MG ODT TAB PO ONE ×2 (20:21→23:23)
[2020-03-11 21:26] LABS: Basophils % (Auto) 0.4 % (0.0-1.8); Eosinophils # (Auto) 0.1 K/mm3 (0.0-0.4); Eosinophils % (Auto) 0.6 % (0.0-4.3); Hematocrit 41.4 % (30.3-42.9); Hemoglobin 14.1 gm/dl (10.1-14.3); Lymphocytes # (Auto) 2.1 K/mm3 (1.2-5.4); Lymphocytes % (Auto) 22.9 % (13.4-35.0); Mean Corpuscular HGB Conc 34 % (30-34); Mean Corpuscular Volume 89 fl (79-97); Monocytes # (Auto) 0.5 K/mm3 (0.0-0.8); Monocytes % (Auto) 5.1 % (0.0-7.3); Platelet Count 268 K/mm3 (140-440); Red Blood Count 4.63 M/mm3 (3.65-5.03); Red Cell Distribution Width 13.6 % (13.2-15.2)
[2020-03-11 21:54] LABS: Alanine Aminotransferase 25 units/L (7-56); Albumin 4.4 g/dL (3.9-5); Blood Urea Nitrogen 10 mg/dL (7-17); Calcium 9.5 mg/dL (8.4-10.2); Hemolysis Index 1
[2020-03-11 21:55] LABS: BUN/Creatinine Ratio 14
[2020-03-11 23:05] LABS: Bacteria,Urine 2+ /HPF (Negative); Bilirubin,Urine NEG (Negative); Blood,Urine NEG (Negative); Color,Urine Yellow (Yellow); Mucus,Urine FEW /HPF; Protein,Urine <15 mg/dL mg/dL (Negative); Urobilinogen,Urine < 2.0 mg/dL (<2.0)
[2020-03-11] MEDS ORDERED: ONDANSETRON 4 MG ODT TAB ONE (23:21)
--- NOTE | 2020-03-11 23:28 | Emergency Department Report ---
ED N/V/D HPI - General Chief complaint: Nausea/Vomiting/Diarrhea Stated complaint: WEAKNESS/NAUSEA PUI?: No Time Seen by Provider: 03/11/20 23:22 Source: patient, EMS Mode of arrival: Stretcher Limitations: No Limitations - History of Present Illness Initial comments: Patient is a 59-year-old female that presents emergency room with complaints of nausea. Patient denies vomiting. Patient denies abdominal pain. Patient denies fever and chills. Patient states she was close to vomiting. Patient denies chest pain. Patient denies shortness of breath. Patient states her symptoms started at 530. Patient states her nausea is worsening. Patient states she thinks she has food poisoning. Patient states she is been eating out at a lot of restaurants lately. Patient denies recent travel. Patient denies recent international travel. Patient denies exposure to the novel coronavirus. Patient denies sick contacts. Patient denies fever and chills. Patient denies cough. Patient denies diarrhea. Patient denies coming in contact with anybody with symptoms of the novel coronavirus. MD complaint: nausea -: Sudden Associated Abdominal Pain: No Severity: moderate, severe Pain Scale: 0 Consistency: constant Improves with: rest Worsens with: eating Associated Symptoms: malaise. denies: myalgias, chest pain, cough, diaphoresis, fever/chills, headaches, loss of appetite, rash, dysuria, shortness of breath, syncope, weakness - Related Data Home Medications Medication Instructions Recorded Confirmed Last Taken Verapamil ER [Calan SR] 180 mg PO DAILY 11/17/15 02/15/18 Unknown Losartan/Hydrochlorothiazide 100 mg PO DAILY 02/15/18 02/16/18 1 Day Ago [Losartan-Hctz 100-25 mg Tab] ~02/15/18 Previous Rx's Medication Instructions Recorded Last Taken Type Aspirin 325 mg PO QDAY #325 tablet 02/16/18 Unknown Rx AtorvaSTATin [Lipitor] 40 mg PO QHS #30 tablet 02/16/18 Unknown Rx Ciprofloxacin HCl [Ciprofloxacin 500 mg PO Q12HR 10 Days #20 tab 03/11/20 Unknown Rx TAB] Ondansetron [Zofran ODT TAB] 4 mg PO Q4HR PRN #15 tab.rapdis 03/11/20 Unknown Rx Allergies Allergy/AdvReac Type Severity Reaction Status Date / Time codeine Allergy Vomiting Verified 10/22/16 17:04 ED Review of Systems ROS: Stated complaint: WEAKNESS/NAUSEA Other details as noted in HPI Constitutional: malaise. denies: chills, diaphoresis, fever Eyes: denies: eye pain, eye discharge, vision change ENT: denies: ear pain, throat pain Respiratory: denies: cough, shortness of breath, wheezing Cardiovascular: denies: chest pain, palpitations Endocrine: no symptoms reported Gastrointestinal: denies: abdominal pain, nausea, diarrhea Genitourinary: denies: urgency, dysuria, discharge Musculoskeletal: denies: back pain, joint swelling, arthralgia Skin: denies: rash, lesions Neurological: denies: headache, weakness, paresthesias Psychiatric: denies: anxiety, depression Hematological/Lymphatic: denies: easy bleeding, easy bruising ED Past Medical Hx - Past Medical History Previous Medical History?: Yes Hx Hypertension: Yes Hx Diabetes: Yes - Surgical History Past Surgical History?: Yes Additional Surgical History: - Family History Family history: no significant - Social History Smoking Status: Never Smoker Substance Use Type: None - Medications Home Medications: Home Medications Medication Instructions Recorded Confirmed Last Taken Type Verapamil ER [Calan SR] 180 mg PO DAILY 11/17/15 02/15/18 Unknown History Losartan/Hydrochlorothiazide 100 mg PO DAILY 02/15/18 02/16/18 1 Day Ago History [Losartan-Hctz 100-25 mg Tab] ~02/15/18 Aspirin 325 mg PO QDAY #325 tablet 02/16/18 Unknown Rx AtorvaSTATin [Lipitor] 40 mg PO QHS #30 tablet 02/16/18 Unknown Rx Ciprofloxacin HCl [Ciprofloxacin 500 mg PO Q12HR 10 Days #20 tab 03/11/20 Unknown Rx TAB] Ondansetron [Zofran ODT TAB] 4 mg PO Q4HR PRN #15 tab.rapdis 03/11/20 Unknown Rx ED Physical Exam - General Limitations: No Limitations General appearance: alert, in no apparent distress - Head Head exam: Present: atraumatic, normocephalic - Eye Eye exam: Present: normal appearance, PERRL Pupils: Present: normal accommodation - ENT ENT exam: Present: mucous membranes moist - Neck Neck exam: Present: normal inspection - Respiratory Respiratory exam: Present: normal lung sounds bilaterally. Absent: respiratory distress, wheezes, rales - Cardiovascular Cardiovascular Exam: Present: regular rate, normal rhythm. Absent: systolic murmur, diastolic murmur, rubs, gallop - GI/Abdominal GI/Abdominal exam: Present: soft, normal bowel sounds. Absent: distended, tenderness, guarding - Extremities Exam Extremities exam: Present: normal inspection, full ROM. Absent: tenderness - Back Exam Back exam: Present: normal inspection, full ROM - Neurological Exam Neurological exam: Present: alert, oriented X3, CN II-XII intact, normal gait. Absent: abnormal gait, motor sensory deficit - Psychiatric Psychiatric exam: Present: normal affect, normal mood - Skin Skin exam: Present: warm, dry, intact, normal color. Absent: rash ED Course Vital Signs 03/11/20 03/11/20 03/11/20 18:50 20:19 23:26 Temperature 98.1 F 98 F Pulse Rate 89 62 Respiratory 18 18 16 Rate Blood Pressure 162/87 167/87 Blood Pressure [Left] O2 Sat by Pulse 96 98 Oximetry 03/11/20 23:29 Temperature 98.3 F Pulse Rate 68 Respiratory 16 Rate Blood Pressure Blood Pressure 176/82 [Left] O2 Sat by Pulse 98 Oximetry - Reevaluation(s) Reevaluation #1: Patient tolerated p.o. challenge. Patient stable for discharge. I discussed all results and clinical findings with patient. I discussed plan of care with patient. Patient agrees with plan of care. Patient is stable for discharge. Patient will be discharged home. Patient given discharge instructions. Patient voiced understanding of discharge instructions. 03/11/20 23:44 ED Medical Decision Making - Lab Data Result diagrams: 03/11/20 20:52 03/11/20 20:52 - EKG Data -: EKG Interpreted by Me EKG shows normal: sinus rhythm, axis, intervals, QRS complexes, ST-T waves Rate: normal - Medical Decision Making Patient is a 59-year-old female who presents emergency room with nausea along. Patient also complained of feeling tired air out of energy and generalized fatigue. Patient actually denies weakness. Patient denies vomiting. Patient given Zofran ODT and her nausea and symptoms improved. Patient's labs were essentially unremarkable except for a UTI. Patient will be treated with antibiotics. Patient not require any further emergency medical services or imaging. Patient stable for discharge. Patient discharged home. - Differential Diagnosis Gastroenteritis, nausea, UTI, food poisoning, food toxicity. Critical care attestation.: If time is entered above; I have spent that time in minutes in the direct care of this critically ill patient, excluding procedure time. ED Disposition Clinical Impression: Gastroenteritis, Nausea alone UTI (urinary tract infection) Qualifiers: Urinary tract infection type: acute cystitis Hematuria presence: with hematuria Qualified Code(s): N30.01 - Acute cystitis with hematuria Disposition: TO HOME OR SELFCARE Is pt being admited?: No Does the pt Need Aspirin: No Condition: Stable Instructions: Urinary Tract Infection in Women (ED), Gastroenteritis (ED), Acute Nausea and Vomiting (ED) Additional Instructions: Patient to follow-up with primary care in 2 to 3 days. Patient to rest. Patient to increase water. Patient to eat a brat diet. Patient to take Tylenol or ibuprofen as needed for pain. Patient to take meds as directed. Patient to return to the ER if condition worsens, changes or new symptoms arise. Prescriptions: Ciprofloxacin HCl [Ciprofloxacin TAB] 500 mg PO Q12HR 10 Days #20 tab Ondansetron [Zofran ODT TAB] 4 mg PO Q4HR PRN #15 tab.rapdis PRN Reason: Nausea And Vomiting Referrals: PRIMARY CARE, [Primary Care Provider] - 2-3 Days Time of Disposition: 23:27
[2020-03-11] MEDS ORDERED: SODIUM CHLORIDE 0.9% 1000 ML 1,000 ML IV ONE (23:29)
[2020-03-11 23:30] VITALS: BP 176/82
[2020-03-11] MEDS ORDERED: SODIUM CHLORIDE 0.9% 1000 ML 1,000 ML ONE (23:39)
== END 2020-03-11 23:52 | disposition home or self-care (01) ==
LOC: ED 18:46
DX: N39.0 Urinary tract infection, site not specified (principal); K52.9 Noninfective gastroenteritis and colitis, unspecified; R11.0 Nausea; I10 Essential (primary) hypertension; E11.9 Type 2 diabetes mellitus without complications; Z88.6 Allergy status to analgesic agent; Z79.899 Other long term (current) drug therapy; Z98.890 Other specified postprocedural states
CPT/HCPCS: 36415; 80053; 81001; 83690; 85025; 93005; 99284; J7030; Q0162

== ENCOUNTER 2020-10-03 19:41 | Emergency (ER) | payer OTHER ==
[2020-10-03] MEDS ORDERED: ONDANSETRON 4 MG/2 ML INJ ONE (20:13)
[2020-10-03] MEDS ORDERED: SODIUM CHLORIDE 0.9% 1000 ML 1,000 ML IV ONE ×2 (20:16→22:50)
[2020-10-03] MEDS ORDERED: ONDANSETRON 4 MG/2 ML INJ IV ONE (20:16)
--- NOTE | 2020-10-03 20:19 | Emergency Department Report ---
ED N/V/D HPI - General Chief complaint: Nausea/Vomiting/Diarrhea Stated complaint: NAUSEA/DIARRHEA/SWEATING Time Seen by Provider: 10/03/20 19:46 Source: EMS Mode of arrival: Stretcher Limitations: No Limitations - History of Present Illness Initial comments: Patient is 60 years old female with history of hypertension, diabetes. Patient brought to the emergency room via EMS from home for evaluation of sudden onset of nausea, vomiting and diarrhea. Patient denied any abdominal pain or chest pain. Patient also denied any fever or chills. MD complaint: nausea, vomiting, diarrhea -: Sudden, hour(s) Description of Vomiting: food contents Description of Diarrhea: water - Related Data Home Medications Medication Instructions Recorded Confirmed Last Taken Verapamil ER [Calan SR] 180 mg PO DAILY 11/17/15 02/15/18 Unknown Losartan/Hydrochlorothiazide 100 mg PO DAILY 02/15/18 02/16/18 1 Day Ago [Losartan-Hctz 100-25 mg Tab] ~02/15/18 Previous Rx's Medication Instructions Recorded Last Taken Type Aspirin 325 mg PO QDAY #325 tablet 02/16/18 Unknown Rx AtorvaSTATin [Lipitor] 40 mg PO QHS #30 tablet 02/16/18 Unknown Rx Ciprofloxacin HCl [Ciprofloxacin 500 mg PO Q12HR 10 Days #20 tab 03/11/20 Unknown Rx TAB] Ondansetron [Zofran ODT TAB] 4 mg PO Q4HR PRN #15 tab.rapdis 03/11/20 Unknown Rx Allergies Allergy/AdvReac Type Severity Reaction Status Date / Time codeine Allergy Vomiting Verified 10/22/16 17:04 ED Review of Systems ROS: Stated complaint: NAUSEA/DIARRHEA/SWEATING Other details as noted in HPI Comment: All other systems reviewed and negative Constitutional: denies: chills, fever Respiratory: denies: cough, shortness of breath, SOB with exertion Cardiovascular: denies: chest pain Gastrointestinal: nausea, vomiting, diarrhea. denies: abdominal pain Neurological: denies: headache, weakness, numbness, paresthesias, confusion ED Past Medical Hx - Past Medical History Previous Medical History?: Yes Hx Hypertension: Yes Hx Diabetes: Yes - Surgical History Past Surgical History?: Yes Additional Surgical History: - Social History Smoking Status: Never Smoker Substance Use Type: None - Medications Home Medications: Home Medications Medication Instructions Recorded Confirmed Last Taken Type Verapamil ER [Calan SR] 180 mg PO DAILY 11/17/15 02/15/18 Unknown History Losartan/Hydrochlorothiazide 100 mg PO DAILY 02/15/18 02/16/18 1 Day Ago History [Losartan-Hctz 100-25 mg Tab] ~02/15/18 Aspirin 325 mg PO QDAY #325 tablet 02/16/18 Unknown Rx AtorvaSTATin [Lipitor] 40 mg PO QHS #30 tablet 02/16/18 Unknown Rx Ciprofloxacin HCl [Ciprofloxacin 500 mg PO Q12HR 10 Days #20 tab 03/11/20 Unknown Rx TAB] Ondansetron [Zofran ODT TAB] 4 mg PO Q4HR PRN #15 tab.rapdis 03/11/20 Unknown Rx ED Physical Exam - General Limitations: No Limitations General appearance: alert, in no apparent distress - Head Head exam: Present: atraumatic, normocephalic, normal inspection - Eye Eye exam: Present: normal appearance, PERRL - ENT ENT exam: Present: mucous membranes dry - Neck Neck exam: Present: normal inspection, full ROM. Absent: tenderness, me ningismus - Respiratory Respiratory exam: Present: normal lung sounds bilaterally - Cardiovascular Cardiovascular Exam: Present: regular rate, normal rhythm, normal heart sounds - GI/Abdominal GI/Abdominal exam: Present: soft, normal bowel sounds. Absent: distended, tenderness, guarding, rebound, rigid, organomegaly, mass, bruit, pulsatile mass, hernia - Extremities Exam Extremities exam: Present: normal inspection, full ROM, normal capillary refill. Absent: tenderness - Back Exam Back exam: Present: normal inspection, full ROM. Absent: CVA tenderness (R), CVA tenderness (L) - Neurological Exam Neurological exam: Present: alert, oriented X3, CN II-XII intact - Psychiatric Psychiatric exam: Present: normal mood - Skin Skin exam: Present: warm, intact, normal color ED Course Vital Signs 10/03/20 10/03/20 10/03/20 19:54 20:01 20:07 Temperature 98.4 F Pulse Rate 74 Respiratory 18 18 Rate Blood Pressure 161/70 156/71 Blood Pressure [Left] O2 Sat by Pulse 95 95 96 Oximetry 10/03/20 10/03/20 10/03/20 20:31 21:01 21:31 Temperature Pulse Rate Respiratory Rate Blood Pressure 151/80 151/80 151/80 Blood Pressure [Left] O2 Sat by Pulse 96 95 96 Oximetry 10/03/20 10/03/20 22:07 22:16 Temperature Pulse Rate 76 Respiratory 18 Rate Blood Pressure 98/75 Blood Pressure 123/75 [Left] O2 Sat by Pulse 84 94 Oximetry - Reevaluation(s) Reevaluation #1: 10/03/20 22:55 Patient stated that she is feeling better however she stated that she is slightly nauseated and she stated that she had 2 episode of diarrhea since she got here. Patient still denying any abdominal pain, hematemesis or hematochezia. Patient given Reglan 10 mg IV and another liter of normal saline. ED Medical Decision Making - Lab Data Result diagrams: 10/03/20 20:34 10/03/20 20:34 - Medical Decision Making Patient is 60 years old female with history of hypertension, diabetes. Patient brought to the emergency room via EMS from home for evaluation of sudden onset of nausea, vomiting and diarrhea. Patient denied any abdominal pain or chest pain. Patient also denied any fever or chills. Patient remained stable in the ER. Stable vital sign. Labs reviewed and is unremarkable. Patient received Zofran and Reglan and normal saline. Patient stated that she is feeling much better. No vomiting observed in the ER. Patient given prescription for Zofran and advised to follow-up with her primary doctor in the next 2 to 3 days and to return to the ER if she develop any new symptoms. Critical care attestation.: If time is entered above; I have spent that time in minutes in the direct care of this critically ill patient, excluding procedure time. ED Disposition Clinical Impression: Acute nausea with nonbilious vomiting, Acute diarrhea Disposition: TO HOME OR SELFCARE Is pt being admited?: No Condition: Stable Instructions: Nausea, Adult, Diarrhea, Adult, [id number] Referrals: MICHELLE FRANK MD [Primary Care Provider] - 3-5 Days
[2020-10-03 21:03] LABS: Basophils % (Auto) 0.2 % (0.0-1.8); Eosinophils # (Auto) 0.1 K/mm3 (0.0-0.4); Eosinophils % (Auto) 0.9 % (0.0-4.3); Hematocrit 40.2 % (30.3-42.9); Hemoglobin 13.7 gm/dl (10.1-14.3); Lymphocytes # (Auto) 1.3 K/mm3 (1.2-5.4); Lymphocytes % (Auto) 11.4 % (13.4-35.0); Mean Corpuscular HGB Conc 34 % (30-34); Mean Corpuscular Volume 91 fl (79-97); Monocytes # (Auto) 0.7 K/mm3 (0.0-0.8); Monocytes % (Auto) 5.9 % (0.0-7.3); Platelet Count 245 K/mm3 (140-440); Red Blood Count 4.42 M/mm3 (3.65-5.03); Red Cell Distribution Width 13.9 % (13.2-15.2)
[2020-10-03 21:09] LABS: Alanine Aminotransferase 32 units/L (7-56); Albumin 4.1 g/dL (3.9-5); BUN/Creatinine Ratio 19; Blood Urea Nitrogen 15 mg/dL (7-17); Calcium 8.7 mg/dL (8.4-10.2); Hemolysis Index 72
[2020-10-03 21:11] LABS: Bilirubin,Direct < 0.2 mg/dL (0-0.2)
[2020-10-03 22:16] VITALS: BP 123/75
[2020-10-03 22:27] LABS: Bacteria,Urine 1+ /HPF (Negative); Bilirubin,Urine NEG (Negative); Blood,Urine NEG (Negative); Color,Urine Yellow (Yellow); Protein,Urine <15 mg/dL mg/dL (Negative); Urobilinogen,Urine < 2.0 mg/dL (<2.0)
[2020-10-03] MEDS ORDERED: METOCLOPRAMIDE 10 MG/2 ML INJ IV ONE (22:50)
== END 2020-10-04 00:44 | disposition home or self-care (01) ==
LOC: ED 19:41
DX: R19.7 Diarrhea, unspecified (principal); R11.2 Nausea with vomiting, unspecified; I10 Essential (primary) hypertension; E11.9 Type 2 diabetes mellitus without complications; Z98.890 Other specified postprocedural states; Z79.899 Other long term (current) drug therapy; Z88.8 Allergy status to other drugs, medicaments and biological substances
CPT/HCPCS: 36415; 80048; 80076; 81001; 83690; 85025; 96361; 96374; 96375; 99284; J2405; J2765; J7030